=== PATIENT | male | born 1980 | race Caucasian/White ===

== ENCOUNTER 2020-05-24 11:43 | Emergency (ER) | payer OTHER, SELFPAY ==
[2020-05-24 11:48] VITALS: BP 141/84; PULSE 93; RESP 18; TEMP 36.2; O2SAT 98
[2020-05-24 12:25] VITALS: BP 141/84; PULSE 93; RESP 18; TEMP 36.2; O2SAT 98
--- NOTE | 2020-05-24 12:37 | ED.SKABFB ---
HPI - Skin/Abscess/Foreign Bdy General Chief complaint: Skin/Abscess/Foreign Body Stated complaint: abscess of bottom Time Seen by Provider: 05/24/20 12:27 Source: patient Mode of arrival: ambulatory Limitations: no limitations History of Present Illness HPI narrative: 39-year-old male Increasing pain and swelling and tenderness of the right side of his rear end for several days No fevers No drainage Had it checked at his primary care office and they sent him to the ER to be looked at Related Data Home Medications Medication Instructions Recorded Confirmed No Home Medications 05/24/20 05/24/20 Allergies Allergy/AdvReac Type Severity Reaction Status Date / Time Penicillins Allergy Unknown Skin Verified 05/24/20 12:29 Reaction Review of Systems Constitutional: Constitutional: Denies fatigue, Denies fever(s) and Denies weakness Gastrointestinal: Gastrointestinal: Denies constipation, Denies diarrhea, Denies nausea and Denies vomiting Genitourinary: Genitourinary: Denies dysuria Musculoskeletal: Musculoskeletal: Denies myalgias Hematologic/Lymphatic: Hematologic/Lymphatic: Denies easy bleeding PMFSH Surgical History Surgical History H/O hernia repair (2015) Hx of nasal septoplasty (01/31/18) Family History Family History Father Hypertension Family history of cardiovascular disease Social History Social History Alcohol intake: current Gender identity (if verbalized by the patient): Male Exam Const: General: no acute distress and alert Nutritional Appearance: well nourished Orientation/consciousness: patient oriented x3 Limitations: no limitations HENMT: Head: normocephalic and atraumatic Ears: external ears normal General nose exam: No nasal discharge present and Epistaxis present Face and sinus: face symmetric Eyes: Conjunctivae: conjunctivae normal Sclera: sclerae normal Neck: Neck: supple and no JVD Chest: Chest palpation & inspection: deferred Resp: Effort & Inspection: normal respiratory effort and not labored Auscultation: other (BS =) Cardio: Heart sounds: no gallops GI: Inspection: normal to inspection GI Palp: Yes Soft to palpation and No Tenderness to palpation present (GI) Rectal Exam: normal sphincter tone, No fecal impaction and No hemorrhoids Other: Moderate sized perianal abscess on the right, no tenderness and no fluctuance extending into the canal on GUILLE Back/Spine/Pelvis: Thoracic/Lumbar Spine: thoracic and lumbar spine normal to inspection Skin: General skin exam: normal color and no rashes or lesions noted Neuro: General: patient oriented x3 (alert) and moves all extremities Cranial nerves: Yes facial symmetry Speech: normal speech Extrem: General: full ROM Course Vital Signs Vital signs: Vital Signs Temperature 36.2 C L 05/24/20 11:48 Pulse Rate 93 05/24/20 11:48 Respiratory Rate 18 05/24/20 11:48 Blood Pressure 141/84 H 05/24/20 11:48 Pulse Oximetry 98 05/24/20 11:48 Temperature 36.2 C L 05/24/20 12:25 Pulse Rate 93 05/24/20 12:25 Respiratory Rate 18 05/24/20 12:25 Blood Pressure 141/84 H 05/24/20 12:25 Pulse Oximetry 98 05/24/20 12:25 Procedures Abscess I/D other: Date of Incision: 05/24/20 Time of Incision: 12:41 Side (if applicable): right Sedation/analgesia: none Local Anesthetic: lidocaine 1% and with epi Technique: incised with #15 blade Irrigation: No Packing used?: iodoform I&D Results: Pus Complications: pain Discharge Plan Discharge Clinical Impression: Perianal abscess Patient Disposition: Home, Self-Care Condition: Improved Instructions: Antibiotic Form, Anorectal Abscess and Anal Fistula (ED) Additional Instructions: Recommend rech
== END 2020-05-24 14:19 | disposition home or self-care (01) ==
PROVIDERS: Emergency Provider Emergency Medicine; PCP Family Medicine
DX: K61.0 Anal abscess (principal)
CPT/HCPCS: 10061; 46050; 99283

== ENCOUNTER → 2020-11-29 01:47 | Outpatient (CLI) | payer OTHER, SELFPAY ==
[2020-11-29 19:39] LABS: SARS-CoV-2 RNA PCR Negative
== END ==
PROVIDERS: PCP Family Medicine; Visit Provider Family Medicine
DX: R68.89 Other general symptoms and signs (principal); Z20.822 Contact with and (suspected) exposure to COVID-19
CPT/HCPCS: C9803; U0003; U0005

== ENCOUNTER → 2021-04-18 03:10 | Outpatient (CLI) | payer OTHER, SELFPAY ==
[2021-04-18 17:24] LABS: SARS-CoV-2 RNA PCR Negative
== END ==
PROVIDERS: PCP Family Medicine; Visit Provider Physician Assistant
DX: R05.9 Cough, unspecified (principal); R09.81 Nasal congestion; Z20.822 Contact with and (suspected) exposure to COVID-19
CPT/HCPCS: C9803; U0003; U0005

== ENCOUNTER → 2022-04-29 14:00 | Outpatient (CLI) | payer OTHER, SELFPAY ==
--- NOTE | ~2022-04-29 | XR_ITS ---
XR hip RT 2V w AP pelvis 04/29/2022 14:21 INDICATION: Right hip pain PROCEDURE: AP pelvis and 2 views right hip COMPARISON: No prior studies for comparison. FINDINGS: Fracture, dislocation or subluxation is not identified. Pelvic rings are intact. Sacral for amen are symmetric. The soft tissues appear within normal limits. No foreign bodies are identified. IMPRESSION: 1: NO ACUTE BONE OR JOINT ABNORMALITY IDENTIFIED. Reviewed, dictated and finalized at location A. [employer]
== END ==
PROVIDERS: PCP Family Medicine; Visit Provider Nurse Practitioner
DX: M25.551 Pain in right hip (principal)
CPT/HCPCS: 73502

== ENCOUNTER 2024-01-15 08:00 | Emergency (ER) | payer OTHER, SELFPAY ==
[2024-01-15 08:09] VITALS: BP 159/95; PULSE 74; RESP 16; TEMP 36.6; O2SAT 97
--- NOTE | 2024-01-15 08:14 | ED.URI ---
HPI - URI/Sore Throat General Chief Complaint: Upper Respiratory Infection Stated Complaint: cough,chriss,headache,fever Time Seen by Provider: 01/15/24 08:15 Source: patient Mode of arrival: ambulatory Limitations: no limitations History of Present Illness HPI Narrative: 43-year-old male presented for complaint of cough, chest congestion, and nasal congestion for 5 days. Endorses fevers up to 100?. Says his daughter was treated for pneumonia last week. Patient denies shortness of breath, wheezing, nausea, vomiting, diarrhea or lethargy. Taking [id number] cough cold medicine. N allergy Related Data Home Medications Medication Instructions Recorded Confirmed clomiphene citrate 50 mg tablet 50 mg PO DAILY 01/15/24 01/15/24 (Clomid) Allergies Allergy/AdvReac Type Severity Reaction Status Date / Time Penicillins Allergy Unknown Skin Verified 01/15/24 08:19 Reaction Review of Systems Review of Systems: CONSTITUTIONAL: Denies body aches, fever, chills, or sweats. EYES: Denies visual changes, redness, or discharge. ENT: Reports rhinorrhea, congestion, sore throat, otalgia. CARDIOVASCULAR: Denies chest pain, palpitations, or edema. RESPIRATORY: Reports cough, denies sob, wheezing. GASTROINTESTINAL: Denies abdominal pain, nausea, vomiting, or diarrhea. SKIN: Denies rash NEUROLOGIC: Denies headache All systems reviewed & are unremarkable except as noted in HPI and below PMFSH Past Medical History Medical History (Updated 01/15/24 @ 08:31 by Rosy Vora APRN) MARICARMEN (generalized anxiety disorder) Prehypertension Surgical History Surgical History H/O hernia repair (2016) Hx of nasal septoplasty (01/31/18) Family History Family History Father Hypertension Family history of cardiovascular disease Social History Social History Smoking status: Former smoker Alcohol intake: current Lack of Transportation: No Lack of Food: Never True Current Housing: I Have Housing Concerned About Future Housing: No Difficulty Paying Gas/Electric Bills: No Difficulty Paying for Meds: No Currently Unemployed: No Education: High School Diploma/GED Difficulty w/ Childcare or Family Care: No Gender identity (if verbalized by the patient): Male Comments At time of signature, I have reviewed and agree with nursing past medical, surgical, social and family history unless otherwise noted. Please see nursing chart for further information. There is no relevant family history pertinent to the presenting complaint Exam Narrative: GENERAL: Well-appearing, in no acute distress. EYES: EOMI. No redness or drainage. Conjunctivae normal. ENT: Mucous membranes pink and moist. Nasal congestion noted. Right TM normal; left TM erythematous with purulent effusion, intact; canal not erythematous, no drainage. Throat normal. Uvula midline. NECK: Normal AROM. Supple. CHEST: No respiratory distress. Lungs clear and diminished to all schrader. HEART: Regular rate and rhythm. No murmur appreciated. ABDOMEN: Soft, nontender, nondistended, normal active bowel sounds. SKIN: Warm, dry, no rash. Capillary refill normal. Normal skin turgor. NEURO: Alert and oriented x3. Gait steady. Course Course Emergency Course: Patient is aware of diagnosis, understands and agrees to treatment plan. Anticipatory guidance given. Patient agrees to follow-up as directed and is aware of reasons to seek care at the emergency department. Portions of this record may have been created with voice recognition software Level of Care: Express Care Visit Vital Signs Vital signs: Vital Signs Temperature 97.9 F 01/15/24 08:09 Pulse Rate 74 01/15/24 08:09 Respiratory Rate 16 01/15/24 08:09 Blood Pressure 159/95 H 01/15/24 08:09 Pulse Oximetry 97 01/15/24 08:09 Temperature 97.9 F 01/15/24 08:09 Pulse Rate 74 01/15/24 08:09 Respiratory Rate 16 01/15/24 08:09 Blood Pressure 159/95 H 01/15/24 08:09 Pulse Oximetry 97 01/15/24 08:09 MDM - URI/Sore Throat MDM Narrative Medical decision making narrative: Discussed physical exam findings consistent with left otitis media and lower respiratory infection. Reviewed antibiotics which should cover both.. Advised supportive measures and signs/symptoms to go to the ER. Pt is appropriate for outpt treatment and f/u. Differential Diagnosis Differential diagnosis: Likely upper respiratory infection, otitis media, sinusitis, viral infection, bronchitis and pharyngitis Discharge Plan Discharge Clinical Impression: Otitis media, Acute lower respiratory infection Patient Disposition: Home, Self-Care Condition: Stable Instructions: Antibiotic Form, Ear Infection (ED), Pneumonia (ED) Additional Instructions: Pneumonia is a lung infection that can cause a fever, cough, and trouble breathing. How it spreads: When someone with bacterial pneumonia coughs, sneezes, or talks, they release respiratory droplets into the air that can be inhaled by others.?You can also get pneumonia by touching a contaminated surface or object and then touching your mouth or nose. You're generally contagious for around 48 hours after starting antibiotics and your fever goes away.? To prevent the spread of pneumonia, you can:? ? Get vaccinated? ? Wash your hands often with soap and water for 20 seconds? ? Cover your mouth with a tissue when you cough or sneeze? ? Avoid people who are already sick with pneumonia? ? Stay home when you have pneumonia Take antibiotics as directed until complete. eat small frequent meals. Get lots of rest and drink fluids. Alternate Tylenol and ibuprofen for pain/fever Hktv-rab-[id number] cough medication can cause drowsiness, take according to package directions If you have nasal congestion, you can take Zyrtec, Claritin along with Flonase spray Call your Primary Care Doctor and make a follow-up appointment in 3 days. Go to the ER for worsening symptoms or concerns Prescriptions: New prednisone 20 mg tablet 40 mg PO DAILY 5 Days Qty: 10 0RF doxycycline hyclate 100 mg tablet 100 mg PO BID 7 Days Qty: 14 0RF No Action clomiphene citrate [Clomid] 50 mg Tablet 50 mg PO DAILY sertraline 50 mg tablet See Rx Instructions .ROUTE .COMPLEX Qty: 30 0RF Dose Instruction: TAKE 1 TABLET BY MOUTH DAILY Rx Instructions: TAKE 1 TABLET BY MOUTH DAILY Follow-up/Referrals: Keesha Funes, [Primary Care Provider] -
== END 2024-01-15 08:35 | disposition home or self-care (01) ==
PROVIDERS: Emergency Provider Nurse Practitioner Family; PCP Family Medicine
DX: H66.92 Otitis media, unspecified, left ear (principal); J22 Unspecified acute lower respiratory infection; Z87.891 Personal history of nicotine dependence
CPT/HCPCS: 99213; G0463

== ENCOUNTER 2024-10-07 13:36 | Emergency (ER) | payer OTHER, SELFPAY ==
--- NOTE | 2024-10-07 13:42 | ED_ITS ---
HPI - Skin/Abscess/Foreign Bdy General Chief complaint: Skin/Abscess/Foreign Body Stated complaint: rash, possible shingles Time Seen by Provider: 10/07/24 13:43 Source: patient Mode of arrival: ambulatory Limitations: no limitations History of Present Illness HPI narrative: Ezekiel is a 44 year old female patient presenting to the clinic today with c/o possible shingles-rash x 3 weeks. He reports rash started 3 weeks ago on his left lateral side. Having red raised blister-like rash with pain in radiation of pain on the left side. Started having a new rash to the right mid lower chest-area is itchy. Denies any fevers, chills, body aches. Related Data Allergies Allergy/AdvReac Type Severity Reaction Status Date / Time Penicillins Allergy Unknown Skin Verified 10/07/24 13:45 Reaction Review of Systems Review of Systems: Pertinent positives per HPI. Patient denies any fever, chills, rash, headache, visual changes, dizziness, cough, runny nose, sore throat, shortness of breath, chest pain, palpitations, nausea, vomiting, diarrhea, constipation, abdominal pain, or any urinary issues. [facility] Past Medical History Medical History Prehypertension MARICARMEN (generalized anxiety disorder) Surgical History Surgical History H/O hernia repair (2015) Hx of nasal septoplasty (01/31/18) Family History Family History Father Hypertension Family history of cardiovascular disease Social History Social History Smoking status: Former smoker Alcohol intake: current Lack of Transportation: No Lack of Food: Never True Current Housing: I Have Housing Concerned About Future Housing: No Difficulty Paying Gas/Electric Bills: No Difficulty Paying for Meds: No Currently Unemployed: No Education: High School Diploma/GED Difficulty w/ Childcare or Family Care: No Gender identity (if verbalized by the patient): Male Comments At the time of my signature, I reviewed and agree with the nursing past medical, surgical, social, and family history. There is no relevant family history pertinent to the patient complaint. Exam Narrative: General: Well-developed, well nourished, in no apparent distress Head: Normocephalic, atraumatic. Cardio: Regular rate and rhythm, s1 and s2 normal, no murmur appreciated. Resp: Clear to auscultation bilaterally, no rhonchi, rales, wheezing or rubs. Integumentary: [place], warm, and dry, red, raised, erythemic base rash with blister-like lesions that itch and are tender to palpation with radiation of pain to the left lateral side, red, raised, blister like rash to the center of the lower chest that are consistent with dermatitis Course Course Emergency Course: Portions of this record may have been created with voice recognition software. Level of Care: Express Care Visit Vital Signs Vital signs: Vital Signs Temperature 36.5 C 10/07/24 13:46 Pulse Rate 68 10/07/24 13:46 Respiratory Rate 16 10/07/24 13:46 Blood Pressure 131/89 10/07/24 13:46 Pulse Oximetry 99 10/07/24 13:46 Temperature 36.5 C 10/07/24 13:46 Pulse Rate 68 10/07/24 13:46 Respiratory Rate 16 10/07/24 13:46 Blood Pressure 131/89 10/07/24 13:46 Pulse Oximetry 99 10/07/24 13:46 Vital signs reviewed MDM - Skin/Abscess/Foreign Bdy MDM Narrative Medical decision making narrative: At the time of visit patient is resting comfortably on the exam table. Patient appears to be nontoxic. He reports rash started 3 weeks ago on his left lateral side. Having red raised blister-like rash with pain in radiation of pain on the left side. Started having a new rash to the right mid lower chest-area is itchy. Denies any fevers, chills, body aches. Plan: I suspect patient has dermatitis versus ongoing herpes zoster rash. Prescription for prednisone, triamcinolone, and acyclovir was sent to the pharmacy. Supportive measures were discussed with the patient and they voiced understanding discharge instructions and agrees to treatment plan. Return precautions reviewed Differential Diagnosis Differential diagnosis: Likely abscess of skin or subcutaneous tissue, viral exanthem, dermatophytosis, urticaria, herpes zoster, cellulitis, eczema, insect bites, impetigo and contact dermatitis Discharge Plan Discharge Clinical Impression: Dermatitis Patient Disposition: Home Condition: Stable Instructions: Antibiotic Form, Dermatitis (ED) Additional Instructions: Apply triamcinolone cream as directed Take prednisone as directed Take acyclovir as prescribed Keep area covered if draining Avoid being around anyone who is immunocompromised, person's, or that have not been vaccinated for chickenpox Avoid scratching as this can cause a secondary infection May take Benadryl 25-50mg every 6 hours as needed for itching. Follow up with your PCP in 3-5 days if symptoms persist or sooner if they worsen Go to the Emergency Room if symptoms worsen- fever, rash spreading with treatment, shortness of breath, tongue swelling, drooling, or chest pain Patient Language: Cymro Prescriptions: New acyclovir 800 mg tablet 800 mg PO Q4H 7 Days Qty: 42 0RF Rx Instructions: while awake; give 5 doses in 24 hours triamcinolone acetonide 0.1 % cream 1 applic topical BID 7 Days Qty: 30 0RF prednisone 20 mg tablet 40 mg PO DAILY 5 Days Qty: 10 0RF No Action sertraline 50 mg tablet See Rx Instructions .ROUTE .COMPLEX Qty: 30 0RF Dose Instruction: TAKE 1 TABLET BY MOUTH DAILY Rx Instructions: TAKE 1 TABLET BY MOUTH DAILY Follow-up/Referrals: Keesha Funes DO [Primary Care Provider] - Time of Disposition: 13:50 Quality NIHSS Nursing Documentation ED NIHSS nursing documentation: reviewed/agree
[2024-10-07 13:46] VITALS: BP 131/89; PULSE 68; RESP 16; TEMP 36.5; O2SAT 99
== END 2024-10-07 13:58 | disposition home or self-care (01) ==
PROVIDERS: Emergency Provider Nurse Practitioner Family; PCP Family Medicine
DX: L30.9 Dermatitis, unspecified (principal); Z87.891 Personal history of nicotine dependence; F41.1 Generalized anxiety disorder; R03.0 Elevated blood-pressure reading, without diagnosis of hypertension
CPT/HCPCS: 99213; G0463